=== PATIENT | female | born 1955 | race Caucasian/White ===

== ENCOUNTER 2019-02-09 09:54 | Emergency (ER) | payer MEDICARE, MEDICAID ==
[~2019-02-09] VITALS: Ht 177.8 cm; Wt 90.9 kg
--- NOTE | 2019-02-09 10:47 | NUR ---
[facility]RON AT BEDSIDE.
[2019-02-09] MEDS ORDERED: ibuprofen tablet 400 MG TABLET PO ONE (10:55)
[2019-02-09] MEDS ORDERED: LIDOcaine 1% w/epiNEPHrine 1:200,000 30ml vial IM ONE (10:55)
[2019-02-09 12:03] VITALS: BP 111/60
== END 2019-02-09 12:56 | disposition home or self-care (01) ==
LOC: ER 09:55
DX: S62.347A Nondisplaced fracture of base of fifth metacarpal bone, left hand, initial encounter for closed fracture (principal); W18.49XA Other slipping, tripping and stumbling without falling, initial encounter; Y93.89 Activity, other specified; Y92.89 Other specified places as the place of occurrence of the external cause; Y99.9 Unspecified external cause status
CPT/HCPCS: 29125; 73110; 73130; 99284; J3490